=== PATIENT | female | born 1935 | race Caucasian/White ===

== ENCOUNTER 2019-03-09 07:47 | Emergency (ER) | payer OTHER ==
[~2019-03-09] VITALS: Ht 152.4 cm; Wt 44.9 kg
[2019-03-09] MEDS ORDERED: PREDNISONE 20 M20 M1 PO (08:12)
[2019-03-09 08:26] VITALS: BP 126/89
== END 2019-03-09 08:30 | disposition home or self-care (01) ==
LOC: ER 07:47
DX: T63.441A Toxic effect of venom of bees, accidental (unintentional), initial encounter (principal); I10 Essential (primary) hypertension; Z91.030 Bee allergy status; Y92.89 Other specified places as the place of occurrence of the external cause